=== PATIENT | female | born 1985 ===

== ENCOUNTER 2016-10-27 18:23 | Emergency (ER) | payer BC ==
[2016-10-27 18:31] VITALS: BP 130/92; RESP 16; TEMP 98.3; O2SAT 100
--- NOTE | 2016-10-27 19:27 | ED PDOC ---
HPI: Chest Pain Time Seen by Provider: 10/27/16 19:22 Chief Complaint (Nursing): Chest Pain Chief Complaint (Provider): Chest Pain History Per: Patient History/Exam Limitations: no limitations Onset/Duration Of Symptoms: Days (x1-2), Intermittent Episodes (none in ED) Current Symptoms Are (Timing): Still Present Context: Other (s/p taking unknown pain medication given to her by friend) Severity: Moderate Quality: Tightness (midsternal, w/o radiation to back or left arm) Associated Symptoms: Nausea, Dyspnea (mild), Other (dizziness w/closing of eyes , vomited x1 (40 min s/p med ingestion); no abdominal pain or leg swelling). denies: Diaphoresis Modifying Factors: None Additional Complaint(s): Breonna Wright is a 31 year old female, with a past medical history inclusive of PUD (controlled), ovarian cysts (controlled, s/p uncomplicated cystectomy) and occasional anxiety, who presents to the ED on 10/27/16 for the evaluation of intermittent, midsternal chest pain that she has experienced x1-2 hours after having taken an unknown analgesic given to her by a friend; initially taken for the treatment of a knee injury she had sustained a few days ago during a fall. Pain, further described as a tightness that does not radiate into her back or arms and is not present upon initial evaluation, has also been accompanied by some mild shortness of breath, nausea and a sensation of dizziness present with the closing of her eyes. Patient also reports having vomited x1 approximately 40 minutes s/p medication ingestion, though she denies having done so since. Further denies diaphoresis, abdominal pain or leg swelling. Of note, patient does currently take oral contraceptives (Minastrin). She also reports that she feels mildly anxious upon initial examination. PMD: none Past Medical History Reviewed: Historical Data, Nursing Documentation, Vital Signs Vital Signs: Last Vital Signs Temp 98.3 F 10/27/16 18:24 Pulse 91 H 10/27/16 22:28 Resp 16 10/27/16 18:24 BP 130/92 H 10/27/16 18:24 Pulse Ox 100 10/27/16 22:28 - Medical History PMH: Denies: Chronic Kidney Disease Other PMH: PUD, ovarian cysts - Surgical History Other surgeries: ovarian cystectomy - Family History Family History: States: Unknown Family Hx - Social History Current smoker - smoking cessation education provided: Yes (occasional) Alcohol: None Drugs: Denies - Home Medications Home Medications: Ambulatory Orders Medication Instructions Recorded No Known Home Med 10/27/16 - Allergies Allergies/Adverse Reactions: Allergies Allergy/AdvReac Type Severity Reaction Status Date / Time No Known Allergies Allergy Verified 10/27/16 18:21 ROSALINDA Risk Score for UA/NSTEMI - ROSALINDA Risk Score Age > 64: NO 3 or more CAD Risk Factors: NO Known CAD (Stenosis greater than 50%): NO Aspirin use in past 7 days: NO Severe Angina: NO EKG ST changes greater than 0.5mm: NO Positive Cardiac Marker: NO ROSALINDA Score: 0 Risk %: 5% Wells Criteria for PE - Wells Criteria for Pulmonary Embolism Clinical Signs and Symptoms of DVT: No P.E is #1 Diagnosis, or Equally Likely: No Heart Rate >100: No Immobilization at least 3 days;Surgery previous 4 weeks: No Previous, objectively diagnosed PE or DVT: No Hemoptysis: No Malignancy w/treatment within 6 months, or palliative: No Total Score: 0 Review of Systems ROS Statement: Except As Marked, All Systems Reviewed And Found Negative Constitutional: Negative for: Sweats Cardiovascular: Positive for: Chest Pain (intermittent, midsternal tightness w/ o radiation to back/arm). Negative for: Edema Respiratory: Positive for: Shortness of Breath (mild) Gastrointestinal: Positive for: Nausea, Vomiting (x1). Negative for: Abdominal Pain Musculoskeletal: Negative for: Leg Pain Neurological: Positive for: Dizziness Physical Exam - Reviewed Nursing Documentation Reviewed: Yes Vital Signs Reviewed: Yes - Physical Exam Appears: Positive for: Non-toxic, No Acute Distress Head Exam: Positive for: ATRAUMATIC, NORMOCEPHALIC Skin: Positive for: Normal Color, Warm, Dry Eye Exam: Positive for: Normal appearance, PERRL Cardiovascular/Chest: Positive for: Regular Rate, Rhythm, Chest Non Tender. Negative for: Murmur Respiratory: Positive for: Normal Breath Sounds. Negative for: Respiratory Distress Gastrointestinal/Abdominal: Positive for: Normal Exam, Soft. Negative for: Tenderness Back: Positive for: Normal Inspection Extremity: Positive for: Normal ROM. Negative for: Calf Tenderness, Swelling Neurologic/Psych: Positive for: Alert, Oriented - Laboratory Results Result Diagrams: 10/27/16 20:18 04/08/17 20:18 - ECG ECG: Positive for: Interpreted By Me, Viewed By Me ECG Rhythm: Positive for: Normal QRS, Normal ST Segment, Sinus Rhythm Rate: 91 O2 Sat by Pulse Oximetry: 100 (RA) Pulse Ox Interpretation: Normal Medical Decision Making Medical Decision Makin:22 Initial Impression: chest pain Differential diagnoses include but are not limited to pulmonary embolism, adverse medication reaction with esophageal irritation, anxiety, ACS (less likely) Initial Plan: * EKG * CXR * Labs * Acetaminophen * Salicylate * BNP * D-Dimer * Pepcid 20mg IVP * Maalox Plus 30ml PO * Reevaluation EKG shows NSR with normal QRS and ST segments. Scribe Attestation: Documented by Talita Sidhu, acting as a scribe for Vito Linda MD. Provider Scribe Attestation: All medical record entries made by the Scribe were at my direction and personally dictated by me. I have reviewed the chart and agree that the record accurately reflects my personal performance of the history, physical exam, medical decision making, and the department course for this patient. I have also personally directed, reviewed, and agree with the discharge instructions and disposition. Disposition - Clinical Impression Clinical Impression: Chest pain - Patient ED Disposition Is Patient to be Admitted: No Counseled Patient/Family Regarding: Studies Performed, Diagnosis - Disposition Referrals: FAMILY PROVIDER,NO [Primary Care Provider] - Disposition: Left W/O Treatment Disposition Time: 22:27 Condition: STABLE
[2016-10-27] MEDS ORDERED: Alum-Mag Hydrox-Simethicone Susp (30 mL) PO ONE (19:41)
[2016-10-27 20:23] LABS: BASO % 0.5 % (0.0-2.0); EOS % 0.6 % (0.0-4.0); HEMATOCRIT 40.5 % (34.0-47.0); LYMPH # 2.1 K/uL (1.0-4.3); LYMPH % 34.5 % (20.0-40.0); MEAN CELL VOLUME 97.3 fl (81.0-99.0); MEAN CORPUSCULAR HEMOGLOBIN 32.3 pg (27.0-31.0); MEAN CORPUSCULAR HGB CONC 33.2 g/dL (33.0-37.0); MEAN PLATELET VOLUME 8.2 fl (7.2-11.7); MONO # 0.4 K/uL (0.0-0.8); MONO % 6.3 % (0.0-10.0); NEUT # 3.6 K/uL (1.8-7.0); NEUT % 58.1 % (50.0-75.0); RED CELL DISTRIBUTION WIDTH 13.5 % (11.5-14.5); WHITE BLOOD COUNT 6.1 K/uL (4.8-10.8)
[2016-10-27 20:35] LABS: BLOOD UREA NITROGEN 9 mg/dl (7-17); CALCIUM 9.3 mg/dL (8.4-10.2); CARBON DIOXIDE 28 mmol/L (22-30); CHLORIDE 102 mmol/L (98-107); GFR AFRICAN-AMERICAN > 60; GLUCOSE,RANDOM 95 mg/dL (65-105); POTASSIUM 3.5 MMOL/L (3.6-5.0); SODIUM 143 mmol/l (132-148)
[2016-10-27 22:29] VITALS: PULSE 91
--- NOTE | 2016-10-28 09:03 | CARD ---
APPROVED REPORT EKG Measurement Heart [id number] <Conclusion> Normal sinus rhythm Normal ECG
--- NOTE | 2016-10-28 15:38 | RAD ---
PROCEDURE: CHEST RADIOGRAPH, 1 VIEW HISTORY: chest pain COMPARISON: None available. FINDINGS: LUNGS: Clear. PLEURA: No pneumothorax or pleural fluid seen. CARDIOVASCULAR: Normal. OSSEOUS STRUCTURES: No significant abnormalities. VISUALIZED UPPER ABDOMEN: Normal. OTHER FINDINGS: None. IMPRESSION: No active disease.
== END 2016-10-27 22:35 | disposition left against medical advice (07) ==
LOC: MERGE 18:23 → EDBD 18:23 → H.ER 18:23
DX: R07.9 Chest pain, unspecified (principal)
CPT/HCPCS: 71010; 80048; 81025; 84484; 85025; 85378; 93005; 96374; 99284; G0480